=== PATIENT | male | born 1990 | race Caucasian/White ===

== ENCOUNTER 2017-04-07 10:56 | Emergency (ER) | payer OTHER ==
[2017-04-07] MEDS ORDERED: TETANUS/DIPHT/PERTUSS (PED) 0.5 ML VIAL IM ONE (13:44)
--- NOTE | 2017-04-07 13:44 | ED Physician Documentation ---
PD HPI UPPER EXT INJURY - Stated complaint Stated Complaint: R THUMB LAC - Chief complaint Chief Complaint: Laceration - Additonal information Additional information: Just prior to arrival patient was working with a short piece of metal that lacerated his right thumb over the interphalangeal joint. He has full range of motion of his thumb. Bleeding at this time is controlled. Patient's wound was irrigated prior to my evaluation. He is uncertain of his last tetanus immunization. PD PAST MEDICAL HISTORY - Past Medical History Past Medical History: No Cardiovascular: None Respiratory: None Endocrine/Autoimmune: None, Other : None HEENT: None Psych: None Musculoskeletal: None Derm: None - Past Surgical History Past Surgical History: No - Present Medications Home Medications: Ambulatory Orders Medication Instructions Recorded Confirmed No Known Home Medications [No 04/07/17 04/07/17 Known Home Medications] - Allergies Allergies/Adverse Reactions: Allergies Allergy/AdvReac Type Severity Reaction Status Date / Time No Known Drug Allergies Allergy Verified 04/07/17 11:18 - Social History Does the pt smoke?: No Smoking Status: Never smoker Does the pt drink ETOH?: No Does the pt have substance abuse?: No - Immunizations Immunizations are current?: Yes - POLST Patient has POLST: No PD ED PE NORMAL - General General: Alert and oriented X 3, No acute distress - HEENT HEENT: Atraumatic - Respiratory Respiratory: No respiratory distress - Extremities Extremities: Other (Right thumb with linear longitudinal lasting ration overlying the interphalangeal joint. Bleeding controlled. No tendon involvement. Neurovascularly intact distally.) Results - Vitals Vitals: Oxygen O2 Source Room air Procedures - Laceration (location) Finger right Dorsal Length in cm: 2 Wound type: Linear Neurovascular status: Sensory intact, Motor intact, Vascular intact Tendon involvement: No: Tendon Injury Anesthesia: Lidocaine 1% Wound Preparation: Chlorhexadine Skin layer closure: Size #-0 - enter number (4-0 ethilon), Sutures - enter # (2 horizontal mattress, 1 simple) Other: Patient tolerated well, Neurovascular intact, Tetanus UTD Complexity: Simple PD MEDICAL DECISION MAKING - ED course ED course: Discussed with patient x-rays for possibility of retained foreign body. He does not feel there is any risk of this given that it was a very larger piece of metal with no particulate matter. [id number] had vasovagal episode during laceration repair.He was pale and bradycardic. Complete repair when patient feels improved. Pateint tolerated suture repair well, was ambulatory without issue. Discussed follow up, suture removal and return for signs of infection. Departure - Departure Disposition: 01 Home, Self Care Condition: Good Instructions: ED Laceration All Comments: You had 2 horizontal mattress sutures applied to your thumb and one simple suture (this may be helpful to the person who removes them. Keep this area clean with a glove or a cover for the thumb when you are working with dirty equipment. Keep your thumb covered for the next day. After that you can wash it with regular soap and water and resume your normal activities. If you are developing signs of infection such as redness, increasing pain, drainage of pus you should return to the emergency department. You should have your wrist sutures removed in 10-14 days. You can do this with your primary care doctor or at the emergency department. Forms: Activity restrictions Discharge Date/Time: 04/07/17 15:46
[2017-04-07] MEDS ORDERED: LIDOCAINE 1% 2 ML VIAL ONE ×2 (13:47→13:48)
[2017-04-07 15:31] VITALS: BP 99/57
== END 2017-04-07 15:46 | disposition home or self-care (01) ==
LOC: ED 10:56
DX: S61.011A Laceration without foreign body of right thumb without damage to nail, initial encounter (principal); Z23 Encounter for immunization; R55 Syncope and collapse; W26.8XXA Contact with other sharp object(s), not elsewhere classified, initial encounter
CPT/HCPCS: 12001; 99282; 99283